=== PATIENT | female | born 1985 | race American Indian/Alaskan Native ===

== ENCOUNTER 2020-12-01 12:23 | Emergency (ER) | payer SELFPAY ==
[2020-12-01] MEDS ORDERED: dexAMETHasone 20 MG/5 ML VIAL IV ONE (13:31)
[2020-12-01] MEDS ORDERED: ALBUTEROL 2.5 MG/3 ML NEBU IH ONE (13:31)
[2020-12-01] MEDS ORDERED: IPRATROPIUM 0.02% NEBU 2.5 ML IH ONE (13:31)
[2020-12-01] MEDS ORDERED: dexAMETHasone 20 MG/5 ML VIAL IM ONE (13:33)
--- NOTE | 2020-12-01 13:47 | Emergency Department Report ---
ED General Adult HPI - General Chief complaint: Adult Asthma Stated complaint: ASTHMA ATTACK Time Seen by Provider: 12/01/20 13:17 Source: patient Mode of arrival: Ambulatory Limitations: No Limitations - History of Present Illness Initial comments: 35-year-old -[place] female patient presents with complaints of asthma exacerbation starting yesterday. She reports she has been out of her albuterol rescue inhaler for some time. She admits to a cough that is nonproductive and wheezing, but denies any hemoptysis, nausea/vomiting, loss of taste/smell, fever/chills/sweats, or recent known sick contacts. She denies chest pain, however states her lungs feel tight. - Related Data Previous Rx's Medication Instructions Recorded Last Taken Type Albuterol Sulfate [Proventil Hfa] 6.7 gm IH Q4H PRN #1 hfa.aer.ad 12/01/20 Unknown Rx Montelukast [Singulair] 10 mg PO QPM 30 Days #30 tablet 12/01/20 Unknown Rx Prednisone [predniSONE 10 mg 10 mg PO .TAPER #1 tab.ds.pk 12/01/20 Unknown Rx (6-Day Pack, 21 Tabs)] Allergies Allergy/AdvReac Type Severity Reaction Status Date / Time Penicillins Allergy Unknown Verified 12/01/20 12:33 ED Review of Systems ROS: Stated complaint: ASTHMA ATTACK Other details as noted in HPI Constitutional: denies: chills, diaphoresis, fever, malaise, weakness Respiratory: cough, wheezing Cardiovascular: denies: chest pain, palpitations, edema Gastrointestinal: denies: abdominal pain, nausea, vomiting, diarrhea Skin: denies: lesions, change in color Hematological/Lymphatic: denies: swollen glands ED Past Medical Hx - Past Medical History Previous Medical History?: Yes Hx Asthma: Yes - Medications Home Medications: Home Medications Medication Instructions Recorded Confirmed Last Taken Type Albuterol Sulfate [Proventil Hfa] 6.7 gm IH Q4H PRN #1 hfa.aer.ad 12/01/20 Unknown Rx Montelukast [Singulair] 10 mg PO QPM 30 Days #30 tablet 12/01/20 Unknown Rx Prednisone [predniSONE 10 mg 10 mg PO .TAPER #1 tab.ds.pk 12/01/20 Unknown Rx (6-Day Pack, 21 Tabs)] ED Physical Exam - General Limitations: No Limitations General appearance: alert, in no apparent distress - Head Head exam: Present: atraumatic - Eye Eye exam: Present: normal appearance. Absent: scleral icterus - ENT ENT exam: Present: normal exam, mucous membranes moist - Neck Neck exam: Present: normal inspection - Respiratory Respiratory exam: Present: wheezes, rhonchi. Absent: respiratory distress, rales, stridor, chest wall tenderness, accessory muscle use - Cardiovascular Cardiovascular Exam: Present: regular rate, normal rhythm - GI/Abdominal GI/Abdominal exam: Present: soft. Absent: tenderness - Extremities Exam Extremities exam: Absent: calf tenderness (No swelling or tenderness to palpati on noted bilaterally to light) - Neurological Exam Neurological exam: Present: alert, oriented X3, normal gait - Psychiatric Psychiatric exam: Present: normal affect, normal mood - Skin Skin exam: Present: warm, dry, intact, normal color. Absent: rash, cyanosis, diaphoretic, ecchymosis ED Course Vital Signs 12/01/20 13:20 Temperature 98.7 F Pulse Rate 98 H Respiratory 18 Rate Blood Pressure 124/84 [Right] O2 Sat by Pulse 97 Oximetry ED Medical Decision Making - Medical Decision Making 35-year-old -[place] female patient presents with complaints of asthma exacerbation starting yesterday. She reports she has been out of her albuterol rescue inhaler for some time. She admits to a cough that is nonproductive and wheezing, but denies any hemoptysis, nausea/vomiting, loss of taste/smell, fever/chills/sweats, or recent known sick contacts. She denies chest pain, however states her lungs feel tight. After continuous neb treatment, patient states her shortness of breath has improved, however she has right-sided chest pain that she describes as feeling like something is sitting on her chest. She reports history of PE 12 years ago while , but denies any recent long travel/surgeries, hemoptysis, leg pain/swelling, hormone use, or syncopal episodes. Chest x-ray is negative for any acute abnormalities. Heart rate is normal. PERC score = 1. Critical care attestation.: If time is entered above; I have spent that time in minutes in the direct care of this critically ill patient, excluding procedure time. ED Disposition Clinical Impression: Asthma exacerbation, mild Disposition: DC-01 TO HOME OR SELFCARE Is pt being admited?: No Condition: Stable Instructions: Asthma, Adult Prescriptions: Prednisone [predniSONE 10 mg (6-Day Pack, 21 Tabs)] 10 mg PO .TAPER #1 tab.ds.pk Albuterol Sulfate [Proventil Hfa] 6.7 gm IH Q4H PRN #1 hfa.aer.ad PRN Reason: Wheezing Montelukast [Singulair] 10 mg PO QPM 30 Days #30 tablet Referrals: PRIMARY CARE, [Primary Care Provider] - 3-5 Days
--- NOTE | 2020-12-01 14:17 | XRay Report ---
CHEST 1 VIEW INDICATION: cough, shortness of breath COMPARISON: None FINDINGS: Support devices: None Heart: Normal Lungs/Pleura: No acute pulmonary or pleural findings. IMPRESSION: 1. No acute disease. Signer Name: Dniesh Simon MD Signed: 12/01/2020 2:12 PM Workstation Name: [id number]
[2020-12-01 16:21] LABS: Hematocrit 39.7 % (30.3-42.9); Hemoglobin 13.5 gm/dl (10.1-14.3); Mean Corpuscular HGB Conc 34 % (30-34); Mean Corpuscular Volume 89 fl (79-97); Platelet Count 245 K/mm3 (140-440); Red Blood Count 4.44 M/mm3 (3.65-5.03); Red Cell Distribution Width 13.6 % (13.2-15.2)
[2020-12-01 16:44] LABS: Alanine Aminotransferase 30 units/L (7-56); Albumin 4.4 g/dL (3.9-5); Blood Urea Nitrogen 5 mg/dL (7-17); Calcium 8.8 mg/dL (8.4-10.2); Hemolysis Index 2
[2020-12-01 16:52] LABS: BUN/Creatinine Ratio 10
--- NOTE | 2020-12-01 17:47 | Cat Scan Report ---
CTA CHEST WITH CONTRAST INDICATION / CLINICAL INFORMATION: chest pain, SOB, hx of PE. TECHNIQUE: Axial CT images were obtained through the chest after injection of IV contrast. 3 plane MIP and/or 3D reconstructions were produced. All CT scans at this location are performed using CT dose reduction f or ALARA by means of automated exposure control. COMPARISON: Chest radiograph 12/01/2020. No prior CTA. FINDINGS: PULMONARY ARTERIES: No large central pulmonary emboli. Poor timing of contrast bolus with distal turb ulent filling artifact bilateral. THORACIC AORTA: No significant abnormality. HEART: No significant abnormality. CORONARY ARTERIES: No significant calcification. MEDIASTINUM / KARLA: No significant abnormality. PLEURA: No pleural effusion. No pneumothorax. LUNGS: Chronic interstitial lung disease is noted bilaterally with subpleural sparing. Noncalcified s oft tissue density nodule right lower lobe measures 5 mm (series 2 image 66. Additional. Fissural non calcified soft tissue density nodule left lower lobe measures 4 mm. ADDITIONAL FINDINGS: None. UPPER ABDOMEN: No acute findings. Diffuse hepatic steatosis. Distended gallbladder. No cholelithiasis or acute cholecystitis. SKELETAL STRUCTURES: No significant osseous abnormality. IMPRESSION: 1. No definite CT evidence for central pulmonary embolism on this limited study. 2. Chronic interstitial lung disease with subpleural sparing. NSIP pattern is favored. 3. Incidental pulmonary nodules measuring 5 mm and 4 mm. Follow-up recommendations as below. 4. Diffuse hepatic steatosis. INCIDENTAL PULMONARY NODULE RECOMMENDATION RECOMMENDATION: Solid Nodule size <6 mm -- Single or Multiple - Low Risk Patient: No routine follow-up - High Risk Patient: Optional CT at 12 months Note These recommendations do not apply to lung cancer screening, patients with immunosuppression, o r patients with known primary cancer. Note Newly detected indeterminate nodule in persons 35 years of age or older. Persons under the age of 35 should not receive follow-up unless there is a known primary cancer. Note Perifissural Nodule is a fissure-attached, homogeneous, solid nodule that has smooth margins an d an oval, lentiform, or triangular shape. They represent about 20% of nodules detected in lung cance r screening, are invariably benign, and do not require follow-up. Nodules 10 mm or larger (or those w ith suspicious features) will continue to be managed based on the size criteria. - Low Risk Patient = minimal or absent history of smoking and of other known risk factors. - High Risk Patient = history of smoking or of other known risk factors. Nodule dimensions are average of long and short axes, rounded to the nearest millimeter. Based on 2017 Fleischner Society Guidelines found in Radiology 2017 284:228-243. https://doi.[email or web address] https://www.ncbi.nlm.nih.gov/pmc/articles/OEQ9194389/ Signer Name: Abdi Beard MD Signed: 12/01/2020 5:42 PM Workstation Name: [id number]
[2020-12-01 18:21] VITALS: BP 129/82
[2020-12-01 19:57] LABS: Total Cells Counted 100
[2020-12-01 19:58] LABS: Large Platelets Rare; Platelet Estimate Consistent w Auto
== END 2020-12-01 18:21 ==
LOC: ED 12:23
DX: J45.901 Unspecified asthma with (acute) exacerbation (principal); Z79.899 Other long term (current) drug therapy; Z88.0 Allergy status to penicillin
CPT/HCPCS: 36415; 71045; 71275; 80053; 84484; 85007; 85025; 85379; 94644; 96372; 99284; J1100; Q9967